=== PATIENT | female | born 1950 | race Caucasian/White ===

== ENCOUNTER → 2020-10-15 | Outpatient (CLI) | payer MEDICARE, OTHER ==
[~2020-10-15] VITALS: Ht 157.5 cm; Wt 59.0 kg
[2020-10-15 12:27] LABS: RED BLOOD COUNT 4.52 M/UL (4.00-5.10); WHITE BLOOD COUNT 8.3 K/UL (4.5-11.0)
[2020-10-15 12:37] LABS: RBC (AUTOMATED) 100 10^6 (0); WBC (AUTOMATED 6 10^3 (0-5)
[2020-10-15 13:15] LABS: GLUCOSE,CSF 63 mg/dL (50-80); TOTAL PROTEIN,CSF 30 mg/dL (20-45)
[2020-10-15 13:21] LABS: BUN/CREATININE RATIO 25 (0-10)
[2020-10-21 13:08] LABS: B. HENSELAE IGG Negative titer (Neg:<1:320); B. HENSELAE IGM Negative titer (Neg:<1:100); B. QUINTANA IGG Negative titer (Neg:<1:320); B. QUINTANA IGM Negative titer (Neg:<1:100)
== END ==
LOC: RAD 10-06 08:00
PROVIDERS: Psychiatry & Neurology Neurology
DX: H57.10 Ocular pain, unspecified eye (principal); H54.7 Unspecified visual loss; R53.83 Other fatigue; Z85.820 Personal history of malignant melanoma of skin; Z88.6 Allergy status to analgesic agent
CPT/HCPCS: 36415; 80053; 82945; 84157; 85025; 86038; 86611; 86777; 86778; 87798; 89051; 96374; J2060